=== PATIENT | male | born 1940 | race Caucasian/White ===

== ENCOUNTER → 2017-08-09 | Outpatient (CLI) | payer MEDICARE ==
[~2017-08-09] MED LIST: AZITHROMYCIN250 M1 PO; BENZONATATE100 MG PO; CIPRO 500MG TA500 MG PO; COMBIGAN 0.2%-010 ML OP; DAILY MULTIPLE1 TA8 PO; DONEPEZIL 10MG10 MG PO; DOXAZOSIN 4MG TA4 MG PO; HYCODAN 5MG. TAB5 MG PO; KEPPRA750 MG PO; LEVETIRACETAM750 MG PO; LEVOTHYROXINE0.1 MG PO; LISINOPRIL 20MG20 MG PO; OMEPRAZOLE40 MG PO; TESSALON PERLE100 MG PO; TRAVATAN 2.5 M2.5 ML OP; VITAMIN B1250 MCG PO; VOLTAREN75 MG PO; ZITHROMAX Z-PA250 M1 PO
--- NOTE | 2017-08-09 15:29 | RADIOLOGY REPORT PS360 ---
CARDIOLITE SPECT MYOCARDIAL PERFUSION SCAN, REST AND STRESS: EXERCISE STRESS [facility] REVIEW QGS EF AND WALL MOTION EVALUATION: QPS - PERFUSION EVALUATION HISTORY: Chest pain, SOB, HTN DOSE: 10.94 mCi technetium 99m mibi intravenously at rest followed by 32.7 mCi technetium 99m mibi following the intravenous administration of 0.4 mg of Lexiscan. Resting blood pressure is 149/81. Stress blood pressure 142/81. FINDINGS: Ejection fraction is calculated to be 54%. Stress images reveal decreased activity in the inferior lateral wall while rest images reveal worsening activity. 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 This is an abnormal high risk stress test
--- NOTE | 2017-08-09 15:29 | RADIOLOGY REPORT PS360 ---
CARDIOLITE SPECT MYOCARDIAL PERFUSION SCAN, REST AND STRESS: EXERCISE STRESS [facility] REVIEW QGS EF AND WALL MOTION EVALUATION: QPS - PERFUSION EVALUATION HISTORY: Chest pain, SOB, HTN DOSE: 10.94 mCi technetium 99m mibi intravenously at rest followed by 32.7 mCi technetium 99m mibi following the intravenous administration of 0.4 mg of Lexiscan. Resting blood pressure is 149/81. Stress blood pressure 142/81. FINDINGS: Ejection fraction is calculated to be 54%. Stress images reveal decreased activity in the inferior lateral wall while rest images reveal worsening activity. 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 This is an abnormal high risk stress test
== END ==
LOC: RAD 08-04 11:30
DX: C61 Malignant neoplasm of prostate (principal); R07.9 Chest pain, unspecified
CPT/HCPCS: A9502; J2785

== ENCOUNTER → 2017-08-11 | Outpatient (CLI) | payer MEDICARE ==
--- NOTE | 2017-08-11 16:51 | RADIOLOGY REPORT PS360 ---
CERVICAL SPINE-2 TO 3 VIEWS HISTORY: Abnormal bone scan HOT SPOT ON NUC STUDY ORDERING PHYSICIAN: Herminio Luther MD PATIENT AGE: 76 years COMPARISON: None FINDINGS: There is normal alignment. There is severe multilevel degenerative disc disease from C3 to T1 with severe facet hypertrophic change from C2 to T1. No lytic or blastic changes evident. There is normal alignment. Multilevel osteophyte formation C4-C7. IMPRESSION: 1. Severe cervical spondylosis with multilevel degenerative disc disease and facet arthrosis. 2. No lytic or blastic lesions apparent 3. DISH cervical spine
--- NOTE | 2017-08-12 09:26 | RADIOLOGY REPORT PS360 ---
NUC BONE SCAN-WHOLE BODY-TBB HISTORY: PROSTATE CANCER ORDERING PHYSICIAN: Herminio Luther MD PATIENT AGE: 76 years DOSE: 27.9 mCi Technetium MDP COMPARISON: None FINDINGS: There is diffuse increased activity over the cervical spine. Radiographs of the C-spine demonstrates severe degenerative disc disease with facet arthritic change as well as DISH of the cervical spine likely contributing to the increased activity. Nonspecific increased activity is present in the thoracic spine and on the right at the L1 level also probably related to degenerative change recent CT scan of the chest performed on 11/24/2016 and previous radiograph of the lumbar spine 09/16/2016 oh demonstrates spondylosis of the thoracic and lumbar spine likely contributing to the areas of increased activity. Contamination artifact is present in the perineal region and along the right thigh. Periarticular activity noted in the shoulders consistent with arthritic change No convincing evidence of metastatic disease. IMPRESSION: 1. No convincing evidence of metastatic disease. 2. Nonspecific activity within the spine consistent with spondylosis as seen on other imaging modalities
== END ==
LOC: RAD 10:37
DX: C61 Malignant neoplasm of prostate (principal)
CPT/HCPCS: A9503

== ENCOUNTER → 2017-08-16 | Outpatient (CLI) | payer MEDICARE ==
--- NOTE | 2017-08-17 06:21 | RADIOLOGY REPORT PS360 ---
CT ABD PELVIS W/O CONTRAST CLINICAL INDICATION: PROSTATE CA ORDERING PHYSICIAN: Herminio Luther MD PATIENT AGE: 76 years COMPARISON: 06/02/2015 TECHNIQUE: Axial images obtained with sagittal and coronal reformats. PROCEDURE: Oral Contrast: Redicat IV Contrast: None . FINDINGS: The lung bases are clear. There are multiple hypoattenuating liver lesions similar to the previous exam consistent with hepatic cysts. No new lesions are identified. The gallbladder is unremarkable. No biliary dilatation. The spleen, adrenal glands, and pancreas have an unremarkable unenhanced CT appearance. No evidence of appendicitis, intestinal obstruction, or diverticulitis. There is extensive diverticulosis of the sigmoid colon. No obvious pelvic mass or adenopathy. There is a left-sided spigelian hernia which contains part of the descending and sigmoid colon. No evidence of intestinal structure or incarceration and no significant change from 06/02/2015. 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 Small lucent area is present in the T11 vertebral body probably due to small lipoma or hemangioma and is unchanged. Postsurgical changes are present involving the anterior abdominal wall with multiple abdominal wall tacks. 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 IMPRESSION: 1. No convincing evidence of metastatic disease. 2. Multiple hypoattenuating lesions of the liver which are unchanged and likely represent cysts. 3. Left sided spigelian hernia which contains part of the descending and sigmoid colon. No evidence of intestinal obstruction or incarceration and no significant change from 06/02/2015 4. Lumbar spondylosis
== END ==
LOC: RAD 09:55
DX: C61 Malignant neoplasm of prostate (principal)

== ENCOUNTER 2017-08-24 07:27 | Day surgery (SDC) | payer MEDICARE ==
[2017-08-24 08:15] LABS: BUN 18 mg/dL (7-18); GFR (ESTIMATED) 49 ML/MIN (>60)
[2017-08-24 08:18] LABS: HEMOGLOBIN 15.6 g/dL (14.1-18.0); LYMPH # 2.6 K/mm3 (0.7-4.5); LYMPH % 38.5 % (10-50)
--- NOTE | 2017-08-24 14:05 | RADIOLOGY REPORT PS360 ---
CARDIAC CATHETERIZATION DATE OF CATHETERIZATION:08/24/2017 11:18 AM PROCEDURES: 1. Left heart catheterization 2. Left ventriculogram 3. Selective coronary angiogram 4. Drug-eluting stent deployment to the proximal LAD 5. Drug-eluting stent deployment to the proximal dominant right coronary artery INDICATION FOR TEST: 1. Coronary artery disease 2. Class IV angina pectoris 3. Abnormal Myoview lateral ischemia Informed consent was obtained prior to the procedure. COMPLICATIONS: None ESTIMATED BLOOD LOSS: Less than 10 ml. TECHNIQUE: One percent lidocaine used to anesthetize the right anterior aspect of the wrist. The right radial artery was accessed via the Seldinger technique. A 6 [place] sheath was placed in the right radial artery. 2.5 mg of verapamil, 800 mcg of nitroglycerin and 5000 U Heparin were given through the arterial sheath. A T8 catheter was used to perform left heart catheterization left ventriculogram and selective coronary angiogram. At the end of the diagnostic angiogram and additional 4000 units of heparin was administered intravenously giving an ACT of 386 seconds. An [place] left 3.5 guide catheter was used intubate the left main artery and the BMW wire was placed into the mid LAD. A 3.5 x 30 mm resolute Ricardo stent was deployed at 17 caprice in the proximal LAD. A 3.5 x 8 mm noncompliant balloon was taken to 24 caprice in order to post dilate the proximal stenosis. Following this a 3 mm x 12 mm resolute stent was placed distal to the first stent and an overlapping manner proximal to the third septal lease administration analyst and which the wire was now residing and then deployed at 18 caprice. The balloon was brought back and deployed at 24 caprice in order to mesh the 2 stents. At the end of the procedure the apparatus was removed with LORRIE-3 flow down the vessel before and after the procedure. Following this the guide catheter was placed in the right coronary artery and the same wire was placed distally. A 4 mm x 34 mm resolute [place] stent was deployed at 18 caprice reducing the severe hemodynamically significant stenosis to 0%. The closing ACT was 303 seconds. At the end the procedure the apparatus was removed the sheath was removed good hemostasis was achieved using TR banding patient was transferred to the postop holding area in stable condition. LORRIE-3 flow was also present down the right coronary artery before and after the procedure Brilinta 180 mg orally was given while on the table ANGIOGRAPHIC RESULTS: 1. The left main artery normal 2. The left anterior descending artery has a proximal 80-90% stenosis followed by additional 50% stenoses. The mid LAD has 40% mid vessel nonflow limiting stenosis 3. The circumflex artery is a nondominant yet still large vessel which has 40% mid vessel stenoses 4. The right coronary artery is a large dominant vessel and has proximal 60-70% stenosis. This supplies a large posterior lateral ventricular branch and large posterior descending artery 5. The COLE ventriculogram reveals normal 65% 6. The left ventricular end-diastolic pressure severely elevated at 30 mmHg IMPRESSION: 1. Severe 2 vessel coronary artery disease as described above 2. Successful stenting of the proximal LAD severe disease reduced to 0% with 2 drug-eluting stents 3. Moderate to severe disease in the proximal dominant large right coronary artery which corresponded to the abnormal Myoview giving lateral ischemia 4. Successful stenting of the proximal dominant right coronary hemodynamically severe disease reduced to 0% with 1 drug-eluting stent 5. Normal ejection fraction 6. Severely elevated LVEDP PLAN: 1. Brilinta and aspirin 2. LDL less than 55 3. Cardiac rehabilitation 4. Avoidance of tobacco products 5. Patient requires Lasix and spironolactone in order to decrease the severely elevated LVEDP 6. Risk factor modification
[2017-08-24 16:45] VITALS: BP 169/90
== END 2017-08-24 17:00 | disposition home or self-care (01) ==
LOC: CATHLAB 07:27
PROVIDERS: Internal Medicine
PROC: 4A023N7 Measurement of Cardiac Sampling and Pressure, Left Heart, Percutaneous Approach (ICD-10-PCS; principal; 2017-08-24)
PROC: B2111ZZ Fluoroscopy of Multiple Coronary Arteries using Low Osmolar Contrast (ICD-10-PCS; 2017-08-24)
PROC: B2151ZZ Fluoroscopy of Left Heart using Low Osmolar Contrast (ICD-10-PCS; 2017-08-24)
PROC: 027135Z Dilation of Coronary Artery, Two Arteries with Two Drug-eluting Intraluminal Devices, Percutaneous Approach (ICD-10-PCS; 2017-08-24)
DX: I25.119 Atherosclerotic heart disease of native coronary artery with unspecified angina pectoris (principal); Z72.0 Tobacco use; R94.39 Abnormal result of other cardiovascular function study; R07.9 Chest pain, unspecified; R06.09 Other forms of dyspnea

== ENCOUNTER → 2017-09-01 | Outpatient (CLI) | payer MEDICARE, MEDICAID ==
--- NOTE | 2017-09-01 17:19 | RADIOLOGY REPORT PS360 ---
PROCEDURE: 2-D M-mode and color Doppler study INDICATIONS FOR THE TEST: Chest pain+ COPD Heart Murmur+ Tobacco SmokingEX Palpitations+ Fatigue+ Syncope Edema Hypertension+Diabetes Mellitus Rheumatic Fever SOB+BRAVO Obesity Hyperlipidemia+ Family History HD Additional History dizziness, cad (3 stents 08/24/2017), Old CVA, old [place] PATIENT INFORMATION HEIGHT: 65 WEIGHT:198 GENDER: Male B/P: 144/84 2-D/M-MODE INTERPRETATION: 2-D MEASUREMENTS OBSERVED VALUES IN CMS Right Ventricular Dimension (RVDd) 2.5 Interventricular Septum (Thickness)(IVsd) 1.1 Left Ventricular Internal Dimensions(LVIDd) 4.5 Left Ventricular Posterior Wall (Thickness)(LVPWd) 1.0 Aortic Root 2.7 Aortic Cusp Separation 1.8 Left Atrial Dimensions (LAD) 3.3 2D 1. Left atrium is mildly enlarged, left ventricle is normal size, there is mild concentric left ventricular hypertrophy present, visually estimated ejection fraction of 55% with no obvious regional wall motion abnormality. 2. The right atrium is mildly enlarged, right ventricle is mildly dilated with normal contractility. 3. The aortic valve is minimally thickened and fibrosed. 4. The mitral and tricuspid valve leaflets are minimally thickened. 5. The pulmonic valve is poorly visualized. 6. No significant pericardial effusion noted. DOPPLER INTERROGATION: Doppler interrogation of the aortic, mitral and tricuspid valvular presence of mild mitral and moderate tricuspid regurgitation, calculated right ventricular systolic pressure is 45 mmHg consistent with moderate pulmonary hypertension, grade 1 diastolic dysfunction seen with tissue Doppler evidence of raised left atrial pressure. CONCLUSION: 1. Biatrial enlargement, normal left ventricular size, mild concentric left ventricular hypertrophy, visually estimated ejection fraction 55% with no obvious regional wall motion abnormality, grade 1 diastolic dysfunction seen with tissue Doppler evidence of raised left atrial pressure. 2. Mild mitral and moderate tricuspid regurgitation, calculated right ventricular systolic pressure is 44 mmHg consistent with moderate pulmonary hypertension. 3. No significant pericardial effusion noted.
== END ==
LOC: RT 12:43
DX: I20.8 Other forms of angina pectoris (principal); R06.00 Dyspnea, unspecified; I10 Essential (primary) hypertension; R94.39 Abnormal result of other cardiovascular function study; R94.31 Abnormal electrocardiogram [ECG] [EKG]

== ENCOUNTER → 2017-09-07 | Outpatient (CLI) | payer MEDICARE, MEDICAID | LOC: LAB 16:30 | DX: K92.1 Melena (principal) ==

== ENCOUNTER → 2017-09-14 | Outpatient (CLI) | payer MEDICARE, MEDICAID ==
[2017-09-14 12:01] LABS: HEMOGLOBIN 16.4 g/dL (14.1-18.0); LYMPH # 2.1 K/mm3 (0.7-4.5); LYMPH % 26.3 % (10-50)
[2017-09-14 12:35] LABS: BUN 22 mg/dL (7-18)
[2017-09-14 12:36] LABS: GFR (ESTIMATED) 42 ML/MIN (>60)
== END ==
LOC: LAB 11:46
PROVIDERS: Internal Medicine Cardiovascular Disease
DX: I25.10 Atherosclerotic heart disease of native coronary artery without angina pectoris (principal); I20.8 Other forms of angina pectoris; I10 Essential (primary) hypertension; E78.5 Hyperlipidemia, unspecified; R06.00 Dyspnea, unspecified

== ENCOUNTER → 2017-09-26 | Outpatient (CLI) | payer MEDICARE, MEDICAID ==
[~2017-09-26] MED LIST changes: +CIPRO 250MG TA250 MG PO; +HYDROCODONE-APA1 TA1 PO; +TAMSULOSIN HCL0.4 MG PO
== END ==
LOC: RT 13:12
DX: R06.00 Dyspnea, unspecified (principal); I25.10 Atherosclerotic heart disease of native coronary artery without angina pectoris; I10 Essential (primary) hypertension; E78.5 Hyperlipidemia, unspecified; G47.33 Obstructive sleep apnea (adult) (pediatric); Z87.891 Personal history of nicotine dependence

== ENCOUNTER 2017-10-02 14:58 | Emergency (ER) | payer MEDICARE, MEDICAID ==
[~2017-10-02] VITALS: Ht 182.9 cm; Wt 87.1 kg
[~2017-10-02 14:58] MED LIST changes: -CIPRO 250MG TA250 MG PO; -HYDROCODONE-APA1 TA1 PO; -TAMSULOSIN HCL0.4 MG PO
--- OUTSIDE RECORDS SUMMARY | 2017-10-02 15:41 | External Medical Summary Rpt | CCD ---
Author Author , BEHZAD WEN Address Unknown Phone [email or web address] Support Name Relationship Address Phone BYRON, Next Of Kin Unknown Unavailable CHRISTY Immunization Name Date Rout CVX Reac Dose Comm Prov Is Faci e tion ent ider Refu lity Give sed n Infl 10-3 149 999 Hist ELE3 No ELE3 uenz 0-20 oric 7 7 a-LA 17 al IV Info Quad rmat ion (Flu - M Sour ce Unsp ecif ied PCV, 10-3 999 Hist ELE3 No ELE3 UF 0-20 oric 7 7 17 al Info rmat ion - Sour ce Unsp ecif ied Infl 09-1 Intr 135 0.5 Hist WALM No WALM uenz 5-20 amus mL oric ART5 ART5 a, 16 cula al 91 91 High r Info rmat Dose ion - Sour ce Unsp ecif ied Zost 11-0 Subc 121 0.65 Hist WALM No WALM er 7-20 utan mL oric ART5 ART5 15 eous al 91 91 Info rmat ion - Sour ce Unsp ecif ied
--- OUTSIDE RECORDS SUMMARY | 2017-10-02 15:41 | External Medical Summary Rpt | CCD ---
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 9% SO JEANNETTE TI ON Sa 63 01 0 No li 80 -0 ne 70 1- Lo 10 20 ng Fl 07 14 er us 5 h Ac 10 ti ML ve Sy ri ng e Hy [address] 57 -0 oc 00 1- Lo od 08 20 ng on 10 14 er e 1 5M Ac G/ ti Ho ve ma tr op in e 1. Vital Signs 11-21-2013 15:56 Name Value Interpretat Reference Comment ion Range Body 98.2 [degF] Temperature BP 68 mm[Hg] Diastolic BP Systolic 120 mm[Hg] Heart 56 /min Rate/Pulse O2% 99 % Respiratory 20 /min Rate 11-21-2013 13:43 Name Value Interpretat Reference Comment ion Range BP 96 mm[Hg] Diastolic BP Systolic 132 mm[Hg] Heart 67 /min Rate/Pulse O2% 97 % Respiratory 24 /min Rate 06-05-2013 01:16 Name Value Interpretat Reference Comment ion Range BP 85 mm[Hg] Diastolic BP Systolic 144 mm[Hg] Heart 52 /min Rate/Pulse O2% 97 % Respiratory 20 /min Rate 06-05-2013 00:59 Name Value Interpretat Reference Comment ion Range Body 98.2 [degF] Temperature 06-04-2013 22:55 Name Value Interpretat Reference Comment ion Range BP 82 mm[Hg] Diastolic BP Systolic 151 mm[Hg] Heart 55 /min Rate/Pulse O2% 98 % Respiratory 20 /min Rate Results Labs Lab Lab Date Result Refere Interp Status Commen Order Detail nces retati t Range on Basic metabolic panel (09-21-2017 11:22) Serum = 138 136-145 complet sodium 017 mmoL/L ed measure 11:22 ment Serum = 4.5 3.5-5.1 complet potassi 017 mmoL/L ed um 11:22 measure ment Serum = 98 74-106 complet or 017 mg/dL ed plasma 11:22 glucose measure ment (mas Estimat = 53 >60 complet ed 017 ML/MIN ed glomeru 11:22 lar filtrat ion rate (GF Comment: REFERENCE RANGE: >60 ML/MIN/1.73 SQUARE METERS Comment: If this patient is -[place]i, then multiply the Comment: result by 1.210. Serum = 1.3 0.70-1. complet or 017 mg/dL 30 ed plasma 11:22 creatin ine measure ment ( Carbon = 30 21.0-32 complet dioxide 017 mmoL/L .0 ed 11:22 measure ment Serum = 105 98-107 complet or 017 mmoL/L ed plasma 11:22 chlorid e measure ment (mo Serum = 9.1 8.5-10. complet or 017 mg/dL 1 ed plasma 11:22 calcium measure ment (mas Serum = 18 7-18 complet or 017 mg/dL ed plasma 11:22 urea nitroge n measure men CBC w auto diff (09-14-2017 11:47) Automat 09-14-2 = 0.2 0.0-0.4 complet ed 017 K/mm3 ed blood 11:47 eosinop hil count Baso % = 0.6 % 0.1-2.0 complet 017 ed 11:47 Automat 2 = 0.0 0-0.2 complet ed 017 K/MM3 ed blood 11:47 basophi l count (count/ vo Blood = 8.0 4.8-10. complet leukocy 017 K/MM3 8 ed elmer 11:47 count (number /volume ) Automat = 12.3 11.5-17 complet ed 017 % .5 ed erythro 11:47 cyte distrib ution width Red = 5.28 4.6-6.2 complet blood 017 M/mm3 ed cell 11:47 count Blood = 263 142-424 complet platele 017 K/mm3 ed t count 11:47 Automat = 7.3 7.4-10. complet ed 017 fl 4 ed blood 11:47 platele t mean volume rachell [place] % = 7.7 % 1.7-9.3 complet 017 ed 11:47 Absolut = 0.6 0.1-1.0 complet e 017 K/mm3 ed monocyt 11:47 e count Automat = 93.7 82.2-97 complet ed 017 fl .8 ed erythro 11:47 cyte mean corpusc ular v Automat = 33.2 31.8-35 complet ed 017 g/dl .4 ed erythro 11:47 cyte mean corpusc ular h Mean = 31.1 27-31.2 complet corpusc 017 pg ed ular 11:47 hemoglo bin (MCH) determ Lymphoc = 26.3 10-50 complet yte 017 % ed count, 11:47 blood, automat ed Absolut = 2.1 0.7-4.5 complet e 017 K/mm3 ed lymphoc 11:47 yte count Blood = 16.4 14.1-18 complet hemoglo 017 g/dL .0 ed bin 11:47 measure ment (mass/v olum Blood = 49.4 42.0-52 complet hematoc 017 % .0 ed rit 11:47 (volume fractio n) Granulo = 63.0 37.0-80 complet cyte 017 % .0 ed percent 11:47 age Blood = 5.1 1.3-8.0 complet granulo 017 K/mm3 ed cytes 11:47 automat ed count (numb Automat = 2.4 % 0.1-12. complet ed 017 0 ed blood 11:47 eosinop hils/10 0 leukocy t Basic metabolic panel (09-14-2017 11:47) Serum = 141 136-145 complet sodium 017 mmoL/L ed measure 11:47 ment Serum = 4.2 3.5-5.1 complet potassi 017 mmoL/L ed um 11:47 measure ment Serum = 95 74-106 complet or 017 mg/dL ed plasma 11:47 glucose measure ment (mas Estimat = 42 >60 complet ed 017 ML/MIN ed glomeru 11:47 lar filtrat ion rate (GF Comment: REFERENCE RANGE: >60 ML/MIN/1.73 SQUARE METERS Comment: If this patient is -[place]i, then multiply the Comment: result by 1.210. Serum = 1.6 0.70-1. complet or 017 mg/dL 30 ed plasma 11:47 creatin ine measure ment ( Carbon = 32 21.0-32 complet dioxide 017 mmoL/L .0 ed 11:47 measure ment Serum 2 = 102 98-107 complet or 017 mmoL/L ed plasma 11:47 chlorid e measure ment (mo Serum = 9.0 8.5-10. complet or 017 mg/dL 1 ed plasma 11:47 calcium measure ment (mas Serum = 22 7-18 complet or 017 mg/dL ed plasma 11:47 urea nitroge n measure men Fecal leukocyte detection (09-07-2017 16:32) Fecal NO complet leukocy 017 WBC'S ed te 16:32 SEEN NO detecti WBC'S on SEEN L Leukocytes [Presence] in Stool by Light microscopy (09-07-2017 16:32) Leukocy NO complet elmer 017 WBC'S ed [Presen 16:32 SEEN ce] in Stool by Light microsc opy COMPREHENSIVE METABOLIC PANEL (11-21-2013 13:25) Glucose 117 74-106 complet 014 mg/dL ed Bld-mCn 13:25 c BUN 15 7-18 complet Bld-mCn 014 mg/dL ed c 13:25 Creat 1.2 0.8-1.3 complet SerPl-m 014 mg/dL ed Cnc 13:25 Creat 68 50-200 complet Cl 014 ML/MIN ed predict 13:25 ed SerPl C-G-vRa te GFR/BSA 59 Greater complet .pred 014 ML/MIN than ed SerPl 13:25 60 Schwart z-vRate Sodium 148 136-145 complet SerPl-s 014 mmoL/L ed Cnc 13:25 Potassi 4.4 3.5-5.1 complet um 014 mmoL/L ed SerPl-s 13:25 Cnc Chlorid 110 98-107 complet e 014 mmoL/L ed SerPl-s 13:25 Cnc CO2 25 21.0-32 complet SerPl-s 014 mmoL/L .0 ed Cnc 13:25 Calcium 8.6 8.5-10. complet 014 mg/dL 1 ed SerPl-m 13:25 Cnc Prot 7.3 6.4-8.2 complet SerPl-m 014 gm/dL ed Cnc 13:25 Albumin 3.5 3.4-5.0 complet 014 gm/dL ed SerPl-m 13:25 Cnc Globuli 3.8 1.3-3.2 complet n 014 gm/dL ed Ser-mCn 13:25 c Albumin 0.9 UNK 1.1-1.8 complet /Glob 014 ed SerPl-m 13:25 Rto Bilirub 0.3 0.2-1.0 complet 014 mg/dL ed SerPl-m 13:25 Cnc AST 28 U/L 15-37 complet SerPl-c 014 ed Cnc 13:25 ALT 11-21-2 44 U/L 30-65 complet SerPl-c 014 ed Cnc 13:25 ALP 11-21-2 125 U/L 50-136 complet SerPl-c 014 ed Cnc 13:25 CBC with AUTO DIFF (11-21-2013 13:25) WBC # -01-2 12.4 4.8-10. complet Bld 014 K/MM3 8 ed Auto 13:25 RBC # 11-21-2 4.72 4.6-6.2 complet Bld 014 M/mm3 ed Auto 13:25 Hgb 11-21-2 14.9 14.1-18 complet Bld-mCn 014 g/dL .0 ed c 13:25 Hct Fr 43.4 % 42.0-52 complet Bld 014 .0 ed 13:25 MCV RBC 91.8 fl 82.2-97 complet 014 .8 ed 13:25 MCH RBC 2 31.5 pg 27-31.2 complet Qn 014 ed Auto 13:25 MEAN 34.4 31.8-35 complet CORPUSC 014 g/dl .4 ed ULAR 13:25 HGB CONC RDW RBC 11-21-2 14.6 % 11.5-17 complet Auto 014 .5 ed 13:25 Platele 395 142-424 complet t Bld 014 K/mm3 ed Ql 13:25 Manual MEAN 7.4 fl 7.4-10. complet PLATELE 014 4 ed T 13:25 VOLUME Granulo 2 83.8 % 37.0-80 complet cytes 014 .0 ed Fr Bld 13:25 Auto LYMPH % 11-21-2 11.9 % 10-50 complet 014 ed 13:25 Monocyt 11-21-2 3.9 % 1.7-9.3 complet es Fr 014 ed Bld 13:25 Auto Eosinop 11-21-2 0.2 % 0.1-12. complet hil Fr 014 0 ed Bld 13:25 Auto Basophi 11-21-2 0.2 % 0.1-2.0 complet ls Fr 014 ed Bld 13:25 Auto Granulo 10.4 1.3-8.0 complet cytes # 014 K/mm3 ed Bld 13:25 Auto Lymphoc 2 1.5 0.7-4.5 complet ytes Fr 014 K/mm3 ed Bld 13:25 Auto Monocyt 2 0.5 0.1-1.0 complet es # 014 K/mm3 ed Bld 13:25 Auto Eosinop 2 0.0 0.0-0.4 complet hil # 014 K/mm3 ed Bld 13:25 Auto Basophi 2 0.0 0-0.2 complet ls # 014 K/MM3 ed Bld 13:25 Auto COMPREHENSIVE METABOLIC PANEL (06-04-2013 22:50) Glucose 99 74-106 complet 013 mg/dL ed Bld-mCn 22:50 c BUN 19 7-18 complet Bld-mCn 013 mg/dL ed c 22:50 Creat 1.5 0.8-1.3 complet SerPl-m 013 mg/dL ed Cnc 22:50 ESTIMAT 55 50-200 complet ED 013 ML/MIN ed CREATIN 22:50 INE CLEARAN CE GFR 46 Greater complet (ESTIMA 013 ML/MIN than ed SHIRA) 22:50 60 Sodium 138 136-145 complet SerPl-s 013 mmoL/L ed Cnc 22:50 Potassi 4.7 3.5-5.1 complet um 013 mmoL/L ed SerPl-s 22:50 Cnc Chlorid 103 98-107 complet e 013 mmoL/L ed SerPl-s 22:50 Cnc CO2 29 21.0-32 complet SerPl-s 013 mmoL/L .0 ed Cnc 22:50 Calcium 8.4 8.5-10. complet 013 mg/dL 1 ed SerPl-m 22:50 Cnc Prot 7.7 6.4-8.2 complet SerPl-m 013 gm/dL ed Cnc 22:50 Albumin 3.7 3.4-5.0 complet 013 gm/dL ed SerPl-m 22:50 Cnc Globuli 07-15-2 4.0 1.3-3.2 complet n 013 gm/dL ed Ser-mCn 22:50 c Albumin 07-15-2 0.9 UNK 1.1-1.8 complet /Glob 013 ed SerPl-m 22:50 Rto Bilirub 07-15-2 0.4 0.2-1.0 complet 013 mg/dL ed SerPl-m 22:50 Cnc AST 07-15-2 27 U/L 15-37 complet SerPl-c 013 ed Cnc 22:50 ALT 07-15-2 41 U/L 30-65 complet SerPl-c 013 ed Cnc 22:50 ALP 07-15-2 129 U/L 50-136 complet SerPl-c 013 ed Cnc 22:50 CBC with AUTO DIFF (06-04-2013 22:50) WBC # 07-15-2 7.3 4.8-10. complet Bld 013 K/MM3 8 ed Auto 22:50 RBC # 07-15-2 4.89 4.6-6.2 complet Bld 013 M/mm3 ed Auto 22:50 Hgb 07-15-2 15.9 14.1-18 complet Bld-mCn 013 g/dL .0 ed c 22:50 Hct Fr 07-15-2 46.6 % 42.0-52 complet Bld 013 .0 ed 22:50 MCV RBC 07-15-2 95.2 fl 82.2-97 complet 013 .8 ed 22:50 MCH RBC 07-15-2 32.5 pg 27-31.2 complet Qn 013 ed Auto 22:50 MEAN 07-15-2 34.1 31.8-35 complet CORPUSC 013 g/dl .4 ed ULAR 22:50 HGB CONC RDW RBC 07-15-2 14.2 % 11.5-17 complet Auto 013 .5 ed 22:50 Platele 07-15-2 263 142-424 complet t Bld 013 K/mm3 ed Ql 22:50 Manual MEAN 07-15-2 7.4 fl 7.4-10. complet PLATELE 013 4 ed T 22:50 VOLUME Granulo 07-15-2 47.1 % 37.0-80 complet cytes 013 .0 ed Fr Bld 22:50 Auto LYMPH % 07-15-2 40.5 % 10-50 complet 013 ed 22:50 Monocyt 07-15-2 8.7 % 1.7-9.3 complet es Fr 013 ed Bld 22:50 Auto Eosinop 07-15-2 2.9 % 0.1-12. complet hil Fr 013 0 ed Bld 22:50 Auto Basophi 07-15-2 0.8 % 0.1-2.0 complet ls Fr 013 ed Bld 22:50 Auto Granulo 07-15-2 3.4 1.3-8.0 complet cytes # 013 K/mm3 ed Bld 22:50 Auto Lymphoc 07-15-2 3.0 0.7-4.5 complet ytes Fr 013 K/mm3 ed Bld 22:50 Auto Monocyt 07-15-2 0.6 0.1-1.0 complet es # 013 K/mm3 ed Bld 22:50 Auto Eosinop 07-15-2 0.2 0.0-0.4 complet hil # 013 K/mm3 ed Bld 22:50 Auto Basophi 07-15-2 0.1 0-0.2 complet ls # 013 K/MM3 ed Bld 22:50 Auto Encounters Encounter Start End Date Code Location Performer Type Date Emergency SRUTHI Pritchett MD (ER) 4 13:18 4 16:00 [facility] SRUTHI Collins MD (ER) 3 23:30 3 01:25 [facility]
--- OUTSIDE RECORDS SUMMARY | 2017-10-02 15:41 | External Medical Summary Rpt | CCD ---
Author Author [employer] Organization [employer] Address Unknown Phone Unavailable Purpose Continuity of Care Document - through 2016
--- OUTSIDE RECORDS SUMMARY | 2017-10-02 15:41 | External Medical Summary Rpt | CCD ---
Author Author , BEHZAD Organization BEHZAD Address Unknown Phone [email or web address] Care Consular Officer Name Role Phone Rakesh Jones MD, Unavailable Unavailable Rakesh Jones MD Purpose Continuity of Care Document - 06-04-2013 through 2016 Problems Code Diagnosis DOS Provider Status 486 [facility] G40.909 EPILEPSY, UNSP, NOT INTRACTABLE , [...] SQUARE METERS Comment: If this patient is -Tunisian, then multiply the Comment: result by 1.210. [...] blood 11:47 platele t mean volume rachell O'Brien % = 7.7 % 1.7-9.3 complet 017 [...] SQUARE METERS Comment: If this patient is -Tunisian, then multiply the Comment: result by 1.210. [...] Pritchett MD (ER) 4 13:18 4 16:00 [facility] Emergency SRUTHI Collins MD (ER) 3 23:30 3 01:25 [facility]
--- OUTSIDE RECORDS SUMMARY | 2017-10-02 15:41 | External Medical Summary Rpt ---
Author Author BEHZAD Salvador, BETICASANDRA [employer] Organization [employer] Address Unknown Phone Unavailable Results Basic metabolic panel in Blood Observa Value Referen Units Interpr Notes Date tion ce etation Range Urea 7 - 18 mg/dL Normal No Sep 21 nitrogen informati 2016 [Mass/vol on in 11:22 AM ume] in source Serum or data Plasma Calcium 8.5 - mg/dL Normal No Sep 21 [Mass/vol 10.1 informati 2016 ume] in on in 11:22 AM Serum or source Plasma data Chloride 98 - 107 mmoL/L Normal No Sep 21 [Moles/vo informati 2016 lume] in on in 11:22 AM Serum or source Plasma data Carbon 21.0 - mmoL/L Normal No Sep 21 dioxide, 32.0 informati 2017 total on in 11:22 AM [Moles/vo source lume] in data Serum or Plasma Creatinin 0.70 - mg/dL Normal No Sep 21 e 1.30 informati 2016 [Mass/vol on in 11:22 AM ume] in source Serum or data Plasma Estimated >60 ML/MIN No REFERENCE Sep 21 informati RANGE: 2017 glomerula on in >60 11:22 AM r source ML/MIN/1. filtratio data 73 SQUARE n rate METERSIf (GF this patient is -A merican, then multiply theresult by 1.210. Glucose 74 - 106 mg/dL Normal No Sep 21 [Mass/vol informati 2016 ume] in on in 11:22 AM Serum or source Plasma data Potassium 3.5 - 5.1 mmoL/L Normal No Sep 21 informati 2016 [Moles/vo on in 11:22 AM lume] in source Serum or data Plasma Sodium 136 - 145 mmoL/L Normal No Sep 21 [Moles/vo informati 2017 lume] in on in 11:22 AM Serum or source Plasma data Basic metabolic panel in Blood Observa Value Referen Units Interpr Notes Date ti ce etation Range Urea 7 - 18 mg/dL High No Sep 14 nitrogen informati 2017 [Mass/vol on in 11:47 AM ume] in source Serum or data Plasma Calcium 8.5 - mg/dL Normal No Sep 14 [Mass/vol 10.1 informati 2016 ume] in on in 11:47 AM Serum or source Plasma data Chloride 98 - 107 mmoL/L Normal No Sep 14 [Moles/vo informati 2016 lume] in on in 11:47 AM Serum or source Plasma data Carbon 21.0 - mmoL/L Normal No Sep 14 dioxide, 32.0 informati 2016 total on in 11:47 AM [Moles/vo source lume] in data Serum or Plasma Creatinin 0.70 - mg/dL High No Sep 14 e 1.30 informati 2016 [Mass/vol on in 11:47 AM ume] in source Serum or data Plasma Estimated >60 ML/MIN No REFERENCE Sep 14 informati RANGE: 2017 glomerula on in >60 11:47 AM r source ML/MIN/1. filtratio data 73 SQUARE n rate METERSIf (GF this patient is -A merican, then multiply theresult by 1.210. Glucose 74 - 106 mg/dL Normal No Sep 14 [Mass/vol informati 2016 ume] in on in 11:47 AM Serum or source Plasma data Potassium 3.5 - 5.1 mmoL/L Normal No Sep 142016 [Moles/vo on in 11:47 AM lume] in source Serum or data Plasma Sodium 136 - 145 mmoL/L Normal No Sep 14 [Moles/vo informati 2016 lume] in on in 11:47 AM Serum or source Plasma data CBC W Auto Differential panel in Blood Observa Value Referen Units Interpr Notes Date tion ce etation Range Basophils 0 - 0.2 K/MM3 Normal No Sep 14 inform2016 [#/volume on in 11:47 AM ] in source Blood by data Automated count Basophils 0.1 - 2.0 % Normal No Sep 14 /100 informati 2016 leukocyte on in 11:47 AM s in source Blood by data Automated count Eosinophi 0.0 - 0.4 K/mm3 Normal No Sep 14 ls informati 2016 [#/volume on in 11:47 AM ] in source Blood by data Automated count Eosinophi 0.1 - % Normal No Sep 14 ls/100 12.0 informati 2016 leukocyte on in 11:47 AM s in source Blood by data Automated count Granulocy 1.3 - 8.0 K/mm3 Normal No Sep 14 elmer inform2016 [#/volume on in 11:47 AM ] in source Blood by data Automated count Granulocy 37.0 - % Normal No Sep 14 elmer/100 80.0 inform2016 leukocyte on in 11:47 AM s in source Blood by data Automated count Hematocri 42.0 - % Normal No Sep 14 t [Volume 52.0 informati 2016 on in 11:47 AM Fraction] source of Blood data Hemoglobi 14.1 - g/dL Normal No Sep 14 n 18.0 informati 2016 [Mass/vol on in 11:47 AM ume] in source Blood data Lymphocyt 0.7 - 4.5 K/mm3 Normal No Sep 14 es informati 2016 [#/volume on in 11:47 AM ] in source Unspecifi data ed specimen by Automated count Lymphocyt 10 - 50 % Normal No Sep 14 es inform2016 [#/volume on in 11:47 AM ] in source Unspecifi data ed specimen by Automated count Erythrocy 27 - 31.2 pg Normal No Sep 14 te mean 2016 corpuscul on in 11:47 AM ar source hemoglobi data n [Entitic mass] Erythrocy 31.8 - g/dl Normal No Sep 14 te mean 35.4 inform2016 corpuscul on in 11:47 AM ar source hemoglobi data n concentra tion [Mass/vol ume] by Automated count Erythrocy 82.2 - fl Normal No Sep 14 te mean 97.8 inform2016 corpuscul on in 11:47 AM ar volume source [Entitic data volume] by Automated count Monocytes 0.1 - 1.0 K/mm3 Normal No Sep 142016 [#/volume on in 11:47 AM ] in source Blood by data Automated count Monocytes 1.7 - 9.3 % Normal No Sep 14 /100 inform2016 leukocyte on in 11:47 AM s in source Blood by data Automated count Platelet 7.4 - fl Low No Sep 14 mean 10.4 inform2016 volume on in 11:47 AM [Entitic source volume] data in Blood by Automated count Platelets 142 - 424 K/mm3 Normal No Sep 14 inform2016 [#/volume on in 11:47 AM ] in source Blood data Erythrocy 4.6 - 6.2 M/mm3 Normal No Sep 14 elmer informati 2016 [#/volume on in 11:47 AM ] in source Amniotic data fluid Erythrocy 11.5 - % Normal No Sep 14 te 17.5 inform2016 distribut on in 11:47 AM ion width source [Entitic data volume] by Automated count Leukocyte 4.8 - K/MM3 Normal No Sep 14 s 10.8 informati 2016 [#/volume on in 11:47 AM ] in source Blood data Leukocytes [Presence] in Stool by Light microscopy Observa Value Referen Units Interpr Notes Date tion ce etation Range Leukocy NO No No No No Aug 18 elmer WBC'S informa informa informa informa 2016 [Presen SEEN tion in tion in tion in tion in 4:32 PM ce] in source source source source Stool data data data data by Light microsc opy Activated clotting time in Blood by Coagulation assay Observa Value Referen Units Interpr Notes Date ti ce etation Range Activated 74 - 125 SEC High No Aug 24 clotting alert 2016 time in on in 11:50 AM Blood by source Coagulati data on assay Activated clotting time in Blood by Coagulation assay Observa Value Referen Units Interpr Notes Date tion ce etation Range Activated 74 - 125 SEC High No Aug 24 clotting alert inform2016 time in on in 11:35 AM Blood by source Coagulati data on assay CBC W Auto Differential panel in Blood Observa Value Referen Units Interpr Notes Date tion ce etation Range Basophils 0 - 0.2 K/MM3 Normal No Aug 24 inform2016 7:50 [#/volume on in AM ] in source Blood by data Automated count Basophils 0.1 - 2.0 % Normal No Aug 24 /100 informati 2016 7:50 leukocyte on in AM s in source Blood by data Automated count Eosinophi 0.0 - 0.4 K/mm3 Normal No Aug 24 ls informati 2016 7:50 [#/volume on in AM ] in source Blood by data Automated count Eosinophi 0.1 - % Normal No Aug 24 ls/100 12.0 informati 2016 7:50 leukocyte on in AM s in source Blood by data Automated count Granulocy 1.3 - 8.0 K/mm3 Normal No Aug 24 elmer informati 2016 7:50 [#/volume on in AM ] in source Blood by data Automated count Granulocy 37.0 - % Normal No Aug 24 elmer/100 80.0 informati 2016 7:50 leukocyte on in AM s in source Blood by data Automated count Hematocri 42.0 - % Normal No Aug 24 t [Volume 52.0 informati 2016 7:50 on in AM Fraction] source of Blood data Hemoglobi 14.1 - g/dL Normal No Aug 24 n 18.0 informati 2016 7:50 [Mass/vol on in AM ume] in source Blood data Lymphocyt 0.7 - 4.5 K/mm3 Normal No Aug 24 es informati 2017 7:50 [#/volume on in AM ] in source Unspecifi data ed specimen by Automated count Lymphocyt 10 - 50 % Normal No Aug 24 es informati 2017 7:50 [#/volume on in AM ] in source Unspecifi data ed specimen by Automated count Erythrocy 27 - 31.2 pg Normal No Aug 24 te mean informati 2016 7:50 corpuscul on in AM ar source hemoglobi data n [Entitic mass] Erythrocy 31.8 - g/dl Normal No Aug 24 te mean 35.4 informati 2017 7:50 corpuscul on in AM ar source hemoglobi data n concentra tion [Mass/vol ume] by Automated count Erythrocy 82.2 - fl Normal No Aug 24 te mean 97.8 informati 2017 7:50 corpuscul on in AM ar volume source [Entitic data volume] by Automated count Monocytes 0.1 - 1.0 K/mm3 Normal No Aug 24 informati 2016 7:50 [#/volume on in AM ] in source Blood by data Automated count Monocytes 1.7 - 9.3 % Normal No Aug 24 /100 informati 2017 7:50 leukocyte on in AM s in source Blood by data Automated count Platelets 142 - 424 K/mm3 Normal No Aug 24 informati 2016 7:50 [#/volume on in AM ] in source Blood data Erythrocy 4.6 - 6.2 M/mm3 Normal No Aug 24 elmer informati 2017 7:50 [#/volume on in AM ] in source Amniotic data fluid Erythrocy 11.5 - % Normal No Aug 24 te 17.5 informati 2016 7:50 distribut on in AM ion width source [Entitic data volume] by Automated count Leukocyte 4.8 - K/MM3 Normal No Oct 4 s 10.8 informati 2016 7:50 [#/volume on in AM ] in source Blood data Basic metabolic panel in Blood Observa Value Referen Units Interpr Notes Date tion ce etation Range Urea 7 - 18 mg/dL Normal No Oct 4 nitrogen informati 2016 7:50 [Mass/vol on in AM ume] in source Serum or data Plasma Calcium 8.5 - mg/dL Normal No Oct 4 [Mass/vol 10.1 informati 2016 7:50 ume] in on in AM Serum or source Plasma data Chloride 98 - 107 mmoL/L Normal No Oct 4 [Moles/vo informati 2016 7:50 lume] in on in AM Serum or source Plasma data Carbon 21.0 - mmoL/L Normal No Oct 4 dioxide, 32.0 informati 2016 7:50 total on in AM [Moles/vo source lume] in data Serum or Plasma Creatinin 0.70 - mg/dL High No Oct 4 e 1.30 informati 2016 7:50 [Mass/vol on in AM ume] in source Serum or data Plasma Estimated >60 ML/MIN No REFERENCE Oct 4 informati RANGE: 2017 7:50 glomerula on in >60 AM r source ML/MIN/1. filtratio data 73 SQUARE n rate METERSIf (GF this patient is -A merican, then multiply theresult by 1.210. Glucose 74 - 106 mg/dL Normal No Oct 4 [Mass/vol informati 2016 7:50 ume] in on in AM Serum or source Plasma data Potassium 3.5 - 5.1 mmoL/L Normal No Oct 4 informati 2016 7:50 [Moles/vo on in AM lume] in source Serum or data Plasma Sodium 136 - 145 mmoL/L Normal No Oct 4 [Moles/vo informati 2016 7:50 lume] in on in AM Serum or source Plasma data Urea nitrogen [Mass/volume] in Serum or Plasma Observa Value Referen Units Interpr Notes Date tion ce etation Range Urea 7 - 18 mg/dL Normal No Sep 22 nitrogen informati 2016 [Mass/vol on in 12:16 PM ume] in source Serum or data Plasma CREATININE Observa Value Referen Units Interpr Notes Date tion ce etation Range Creatinin 0.70 - mg/dL Normal No Sep 22 e 1.30 informati 2016 [Mass/vol on in 12:16 PM ume] in source Serum or data Plasma Estimated >60 ML/MIN No REFERENCE Sep 22 informati RANGE: 2017 glomerula on in >60 12:16 PM r source ML/MIN/1. filtratio data 73 SQUARE n rate METERSIf (GF this patient is -A merican, then multiply theresult by 1.210. Prostate specific Ag [Mass/volume] in Serum or Plasma Observa Value Referen Units Interpr Notes Date tion ce etation Range Prostate 0.0 - 4.0 ng/mL High No Sep 14 specific informati 2017 Ag on in 12:17 PM [Mass/vol source ume] in data Serum or Plasma CBC W Auto Differential panel in Blood Observa Value Referen Units Interpr Notes Date tion ce etation Range Basophils 0 - 0.2 K/MM3 Normal No Jul 19 informati 2016 5:45 [#/volume on in AM ] in source Blood by data Automated count Basophils 0.1 - 2.0 % Normal No Jul 19 informati 2016 5:45 leukocyte on in AM s in source Blood by data Automated count Eosinophi 0.0 - 0.4 K/mm3 Normal No Jul 19 ls informati 2016 5:45 [#/volume on in AM ] in source Blood by data Automated count Eosinophi 0.1 - % Normal No Jul 19 ls/100 12.0 informati 2016 5:45 leukocyte on in AM s in source Blood by data Automated count Granulocy 1.3 - 8.0 K/mm3 Normal No Jul 19 elmer informati 2016 5:45 [#/volume on in AM ] in source Blood by data Automated count Granulocy 37.0 - % Normal No Jul 19 elmer/100 80.0 informati 2016 5:45 leukocyte on in AM s in source Blood by data Automated count Hematocri 42.0 - % Normal No Jul 19 t [Volume 52.0 informati 2016 5:45 on in AM Fraction] source of Blood data Hemoglobi 14.1 - g/dL No No Jul 19 n 18.0 informati informati 2016 5:45 [Mass/vol on in on in AM ume] in source source Blood data data Lymphocyt 0.7 - 4.5 K/mm3 Normal No Jul 19 es informati 2016 5:45 [#/volume on in AM ] in source Unspecifi data ed specimen by Automated count Lymphocyt 10 - 50 % Normal No Jul 19 es informati 2016 5:45 [#/volume on in AM ] in source Unspecifi data ed specimen by Automated count Erythrocy 27 - 31.2 pg High No Jul 19 te mean informati 2016 5:45 corpuscul on in AM ar source hemoglobi data n [Entitic mass] Erythrocy 31.8 - g/dl Normal No Jul 19 te mean 35.4 informati 2016 5:45 corpuscul on in AM ar source hemoglobi data n concentra tion [Mass/vol ume] by Automated count Erythrocy 82.2 - fl Normal No Jul 19 te mean 97.8 informati 2016 5:45 corpuscul on in AM ar volume source [Entitic data volume] by Automated count Monocytes 0.1 - 1.0 K/mm3 Normal No Jul 19 informati 2016 5:45 [#/volume on in AM ] in source Blood by data Automated count Monocytes 1.7 - 9.3 % High No Jul 19 /100 informati 2016 5:45 leukocyte on in AM s in source Blood by data Automated count Platelet 7.4 - fl Normal No Jul 19 mean 10.4 informati 2016 5:45 volume on in AM [Entitic source volume] data in Blood by Automated count Platelets 142 - 424 K/mm3 Normal No Jul 19 informati 2016 5:45 [#/volume on in AM ] in source Blood data Erythrocy 4.6 - 6.2 M/mm3 Normal No Jul 19 elmer informati 2016 5:45 [#/volume on in AM ] in source Amniotic data fluid Erythrocy 11.5 - % Normal No Jul 19 te 17.5 informati 2016 5:45 distribut on in AM ion width source [Entitic data volume] by Automated count Leukocyte 4.8 - K/MM3 Normal No Jul 19 s 10.8 informati 2016 5:45 [#/volume on in AM ] in source Blood data
--- OUTSIDE RECORDS SUMMARY | 2017-10-02 15:41 | External Medical Summary Rpt | CCD ---
Author Author , BEHZAD WEN Address Unknown Phone [email or web address] Support Name Relationship Address Phone BYRNO, Next Of Kin Unknown Unavailable CHRISTY Immunization [...]
[2017-10-02] MEDS ORDERED: TAMSULOSIN HCL0.4 MG PO (15:53)
--- NOTE | 2017-10-02 16:06 | Emergency Room Report ---
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 N Clinical Suspician of Infection? N Mental Status: 1 - Regular (Normal Baseline) Sepsis Risk:Low Sepsis Risk Have you (or family members/close friends) recently traveled outside the [place]? N If Yes, where/when: Have you had exposure to infectious disease within the past month? N TB? Other? Specify: 77 years old white male with history of prostatic cancer and poor historian. He developed sudden onset of pain at 2 PM on the RIGHT side of the abdomen radiating to the RIGHT testicle. He denies having hematuria and complains of RIGHT flank pain. There is no nausea or vomiting. Denies having chest pain shortness of breath palpitations. Source patient, RN notes reviewed Exam Limitations clinical condition ALLERGIES Coded Allergies: Sulfa (Sulfonamide Antibiotics) (11/23/16) Home Medications Reported Medications LEVOTHYROXINE SOD (Synthroid) 100 MCG PO DAILY Omeprazole (Omeprazole 40MG) 40 MG PO DAILY DONEPEZIL HCL (Donepezil 10MG Tablet) 10 MG PO QHS LISINOPRIL (Lisinopril) 20 MG PO DAILY MULTIVITAMIN (Daily Multiple Vitamin) 1 TAB PO DAILY Doxazosin Mesylate (Doxazosin 4MG Tablet) 4 MG PO QHS #90 Levetiracetam (Keppra 750MG) 1,500 MG PO BID TAMSULOSIN HCL (Tamsulosin HCl) 0.4 MG PO DAILY #30 History Medical History General CAD? Yes Angina: No [place]: Yes Hypertension? Yes Hyperlipidemia? No CHF? No DVT? No PE? No COPD? No Asthma? Yes Anemia? No GERD? Yes Gastric ulcers? No GI Bleed? No Hernia? No Thyroid Problems? Yes Hypothyroidism? No CVA? Yes Seizures? Yes Diabetes? No Renal Insuffiency? No End Stage Renal Disease? No UTI? No Stones? No BPH? Yes GB Disease: No Nephritic Syndrome? No Asplenia? No Hepatitis? No Sickle Cell Disease? No Arthritis? Yes Migraines? No Cataracts? No Glaucoma? Yes MRSA? No HIV? No TB? No Anxiety? No Depression? No Cancer? Yes Site: PROSTATE More? No Immunization Hx DT/Tetanus Unknown Flu 2016-17FSN Pneumonia Received In Past Surgical Hx Previous Surgery?Y PROSTATE X 2 HERNIA X 2 RT KNEE SURGERY LEFT HAND Appendix Family History Family Hx Diabetes Yes CAD Yes Hypertension Yes Hyperlipidemia Yes Cancer Yes TB No Social History Smoking Hx Smoker: Former Smoker Tobacco: No Type Cigarettes Packs/day 1 1/2 - 2 Packs Are you/the child exposed to second-hand smoke: No Alcohol Alcohol: No Review of Systems All Other Systems Reviewed and Negative Constitutional no symptoms reported Eyes no symptoms reported ENT no symptoms reported. Respiratory no symptoms reported Cardiovascular no symptoms reported Gastrointestinal no symptoms reported Genitourinary see HPI, scrotal/testicular pain. Musculoskeletal see HPI, back pain Skin no symptoms reported Psychiatric/Neurological no symptoms reported Physical Exam Vital Signs Vital Signs Date Time Temp Pulse Resp B/P Pulse O2 O2 Flow FiO2 Ox Delivery Rate 10/02 1859 62 18 120/72 98 10/02 1829 18 10/02 1703 97.9 69 18 133/72 96 10/02 1543 97.9 72 18 129/74 95 - WBC >12,000 or <4,000 or 10% bands? 2 or more SIRS Criteria Met? B/P:129/74 MAP:92 Creatinine >2.0? UA output<0.5ml/kg/hr for 2 hrs? Platelet count >100,000? Lactate >2.0mmol/1? INR >1.2 or PTT > than 60 sec? Evidence of Organ Dysfunction? Provider documented clinical suspician of infection? N Sepsis Criteria Count: 0 Sepsis Risk: Low Sepsis Risk General Appearance normal appearance, WD/WN Eye Exam - bilateral eye normal exam, bilateral eye PERRL, bilateral eye EOMI Ear, Nose, Throat hearing grossly normal, normal ENT inspection Neck normal inspection, non-tender, supple, full range of motion Respiratory Status Yes: trachea midline, chest symmetrical, non tender chest. No: respiratory distress. Lung Sounds bilateral: normal breath sounds, lungs clear. Cardiovascular normal exam, regular rate/rhythm, no peripheral edema, no gallop, no JVD, no murmur, no rub, normal peripheral pulses Peripheral Pulses Pulses normal Yes Gastrointestinal normal bowel sounds, normal exam, non tender, soft, no organomegaly, no guarding, no rebound, tenderness, the patient has an area of maximum tenderness about the RIGHT suprapubic region radiating to the RIGHT testicle, uncircumcised penis with no discharge, he has RIGHT CVA tenderness Back normal inspection, no CVA tenderness, no vertebral tenderness, CVA tenderness (R) Male Genitalia uncircumcised penis no penile discharge,RIGHT testicular hydrocele and that is tender to examination, LEFT testicle within normal size nontender. No inguinal lymph nodes prostatic enlargement of the RIGHT lobe with no palpable masses, preservative median fissure. 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 No Results/Orders Laboratory Tests 10/02/17 1708: Urine Color YELLOW, Urine Appearance SL CLOUDY, Urine pH 5.5, Ur Specific [place] >= 1.030, Urine Protein NEGATIVE, Urine Ketones NEGATIVE, Urine Blood 2+ H, Urine Nitrate NEGATIVE, Urine Bilirubin NEGATIVE, Urine Urobilinogen 0.2, Ur Leukocyte Esterase NEGATIVE, Urine RBC 5-10, Ur Squamous Epith Cells OCC, Urine Glucose NEGATIVE 10/02/17 1445: Lactic Acid 1.4 10/02/17 1445: Sodium 140, Potassium 4.3, Chloride 105, Carbon Dioxide 29, BUN 18, Creatinine 1.3, Estimated Creat Clear 57, Estimated GFR (MDRD) 53, Glucose 109 H, Calcium 9.0, Total Bilirubin 0.3, AST 26, ALT 32, Alkaline Phosphatase 146 H, Total Protein 7.5, Albumin 3.7, Globulin 3.8 H, Albumin/Globulin Ratio 1.0 L, Lipase 178, WBC 7.3, RBC 4.82, Hgb 15.0, Hct 45.5, MCV 94.5, RDW 12.5, Plt Count 241, MPV 7.2 L, Gran % 65.0, Gran # 4.7, Lymphocytes % 24.1, Monocytes % 7.9, Eosinophils % 2.3, Basophils % 0.6, Lymphocytes # 1.8, Monocytes # 0.6, Eosinophils # 0.2, Basophils # 0.1, PUBS MCHC 33.0, MCH 31.2 Current Medication Orders Sig/Oswaldo Start time Last Medication Dose Route Stop Time Status Admin Hydrocodone Bitart/ 1 TAB ONCE ONE 10/020 DC 10/02 Acetaminophen PO 10/02 183 1829 Ketorolac 15 MG ONCE ONE 10/02 1830 CAN Tromethamine IV 10/02 183 Hydrocodone Bitart/ 0 .STK-MED ONE 10/02 1828 DC Acetaminophen PO Sodium Chloride 10 ML PRN PRN 10/02 1615 AC IV 10/03 1613 Orders Procedure Date/time Status DIET-NOTHING BY MOUTH 10/02 D Active US SCROTUM 10/02 182 Active IV SALINE LOCK 10/[address] ABD/PELVIS REQ 10/02 1607 Complete URINALYSIS/COMPLETE 10/02 1607 Complete LIPASE 10/02 1607 Complete LACTIC ACID 10/02 1607 Complete CBC WITH AUTO DIFF 10/02 1607 Complete CHEM 12 PROFILE 10/02 1607 Complete Departure Departure Time of Disposition 1937 Disposition DC Home or Self Care(routine) Clinical Impression Primary Impression: Hydrocele in adult Secondary Impressions: Epididymitis, Hx of prostatic malignancy Condition STABLE Referrals Herminio Luther MD Additional Instructions 1819 CT was negative stone and I ordered scrotal US. The patient underwent US with good bilateral flow. I discussed with the patient and family the need for the following 1- scrotal elevation 2- cold compresses 3- antibiotics 4- lortab 5- call Dr. martin in AM for a close follow up. 6- retur if needed. Discharge Counseling Counseled pt/family regarding diagnosis, test results, medications/RX, home care, follow up needs Prescriptions Current Visit Scripts CIPROFLOXACIN HCL (Cipro 250MG TAB) 250 MG PO BID #20 TAB HYDROCODONE 5MG/APAP 325MG (Hydrocodon-Acetaminophen 5-325) 1 TAB PO Q8HP PRN pain #12 TAB ED Critical Care Critical Care No If Critical Care minutes are documented, the time involved in the performance of seperately reportable procedures was not counted toward critical care time documented. I directly delivered medical care to this critically ill and/or injured patient. Timely evaluation and treatment was necessary to address the significant organ system(s) dysfunction present in this patient. at 1945
[2017-10-02 17:00] LABS: LYMPH # 1.8 K/mm3 (0.7-4.5); LYMPH % 24.1 % (10-50)
[2017-10-02 17:21] LABS: URINE BILIRUBIN - DIPSTICK NEGATIVE (NEG); URINE BLOOD 2+ (NEG)
[2017-10-02 17:29] LABS: URINE SQUAMOUS CELLS OCC #/hpf (OCC)
--- NOTE | 2017-10-02 19:39 | RADIOLOGY REPORT PS360 ---
CT ABD PELVIS W/O CONTRAST CLINICAL INDICATION: Right flank pain R CVA PAIN AND RT SIDED ABD PAIN ORDERING PHYSICIAN: Cris Edouard MD PATIENT AGE: 77 years COMPARISON: 08/16/2017 TECHNIQUE: Axial images obtained with sagittal and coronal reformats. PROCEDURE: Oral Contrast: None IV Contrast: None . FINDINGS: The lung bases are clear. There are multiple hypoattenuating liver lesions similar to the previous exam consistent with hepatic cysts. No new lesions are identified. The gallbladder is unremarkable. No biliary dilatation. The spleen, adrenal glands, and pancreas have an unremarkable unenhanced CT appearance. No evidence of appendicitis, intestinal obstruction, or diverticulitis. There is extensive diverticulosis of the sigmoid colon. No obvious pelvic mass or adenopathy. There is a left-sided spigelian hernia which contains part of the descending and sigmoid colon. No evidence of intestinal obstruction or incarceration and no significant change from 08/16/2017. 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 Small lucent area is present in the T11 vertebral body probably due to small lipoma or hemangioma and is unchanged. Postsurgical changes are present involving the anterior abdominal wall with multiple abdominal wall tacks. 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 IMPRESSION: 1. Multiple hypoattenuating lesions of the liver which are unchanged and likely represent cysts. 2. Left sided spigelian hernia which contains part of the descending and sigmoid colon. No evidence of intestinal obstruction or incarceration and no significant change from 06/02/2015 3. Colonic diverticulosis. No evidence of diverticulitis. 4. No renal or ureteral calculi or hydronephrosis
[2017-10-02] MEDS ORDERED: HYDROCODONE-APA1 TA1 PO (19:45)
[2017-10-02] MEDS ORDERED: CIPRO 250MG TA250 MG PO (19:45)
[2017-10-02 20:28] VITALS: BP 120/72
--- NOTE | 2017-10-03 05:23 | RADIOLOGY REPORT PS360 ---
US SCROTUM HISTORY: sudden onset testicular pain ORDERING PHYSICIAN: Cris Edouard MD PATIENT AGE: 77 years COMPARISON: None FINDINGS: There is moderate sized right hydrocele. Right testicle itself has an unremarkable appearance measuring 2.7 x 3.3 cm. Blood flow is detected within the right testicle. No mass evident. Unremarkable epididymis. Unremarkable left testicle measuring 3.9 x 1.8 cm. Blood flow is present to the left testicle. No testicular mass. Unremarkable epididymis. IMPRESSION: Moderate sized right hydrocele otherwise negative testicular ultrasound
== END 2017-10-02 20:28 | disposition home or self-care (01) ==
LOC: ER 14:58
PROVIDERS: Emergency Medicine
DX: N43.3 Hydrocele, unspecified (principal); N45.1 Epididymitis; I25.10 Atherosclerotic heart disease of native coronary artery without angina pectoris; I25.2 Old myocardial infarction; J45.909 Unspecified asthma, uncomplicated; K21.9 Gastro-esophageal reflux disease without esophagitis; E34.8 Other specified endocrine disorders; Z85.46 Personal history of malignant neoplasm of prostate; Z88.2 Allergy status to sulfonamides; Z79.899 Other long term (current) drug therapy; Z87.891 Personal history of nicotine dependence